=== PATIENT | female | born 2005 | race Hispanic/Latino ===

== ENCOUNTER 2025-04-16 22:00 | Emergency (ER) | payer OTHER ==
[~2025-04-16] VITALS: Ht 160 cm; Wt 61.8 kg
[2025-04-16 23:23] LABS: BASO # 0.0 10^3/uL (0.0-0.2); BASO % 0.4 % (0.0-1.0); EOS # 0.1 10^3/uL (0.0-0.5); EOS % 0.6 % (0.0-3.0); LYMPH # 3.7 10^3/uL (1.5-5.0); LYMPH % 34.9 % (24.0-44.0); MONO # 0.6 10^3/uL (0.0-0.8); MONO % 5.9 % (2.0-8.0); NEUTROPHILS # 6.1 10^3/uL (1.5-8.5); NEUTROPHILS % 58.0 % (36.0-66.0); PLATELET COUNT, AUTOMATED 262 10^3/uL (150-450)
[2025-04-16 23:24] LABS: KETONE, URINE AUTO RFX NEGATIVE (NEGATIVE); LEUKOCYTE ESTERASE UR AUTO RFX NEGATIVE (NEGATIVE); MUCUS, URINE RFX SMALL (NEGATIVE); NITRITE, URINE AUTO RFX NEGATIVE (NEGATIVE); RBC, URINE AUTO RFX 1 /HPF (0-3); SQUAM EPITHELIAL CELL UR AURFX 1 /HPF (0-6); WBC, URINE AUTO RFX 1 /HPF (0-3)
[2025-04-16 23:34] LABS: ALT/SGPT 21 U/L (7.0-40); AST/SGOT 23 U/L (<34); CALCIUM LEVEL 9.0 MG/DL (8.5-10.1); CARBON DIOXIDE LEVEL 27 MMOL/L (20-31); CHLORIDE LEVEL 106 MMOL/L (98-107); CREATININE FOR GFR 0.82 MG/DL (0.55-1.30); GLOMERULAR FILTRATION RATE > 90.0 (>60); POTASSIUM SERUM 3.5 MMOL/L (3.5-5.1); SODIUM LEVEL 140 MMOL/L (136-145)
[2025-04-16] MEDS: NS (Normal Saline) 0.9% 1,000 ML IV ONE (23:49)
[2025-04-17 00:26] LABS: HCG, SERUM QUALITATIVE NEGATIVE (NEGATIVE)
[2025-04-17] MEDS: MAALOX 30 ML SUSP *UDC PO ONE (00:26)
[2025-04-17] MEDS ORDERED: CARA1TAB6 PO (01:03)
[2025-04-17] MEDS ORDERED: PROM25TA12 PO (01:03)
[2025-04-17 01:11] VITALS: BP 107/56; TEMP 97.9; O2SAT 97
== END 2025-04-17 01:12 | disposition home or self-care (01) ==
LOC: M ED 22:00
DX: K29.00 Acute gastritis without bleeding (principal); Z79.899 Other long term (current) drug therapy
CPT/HCPCS: 80048; 80076; 81001; 83690; 84703; 85025; 96374; 99284; J2765